=== PATIENT | female | born 1960 | race Caucasian/White ===

== ENCOUNTER 2022-11-18 14:50 | Emergency (ER) | payer BC, SELFPAY ==
[2022-11-18 15:00] VITALS: BP 137/81; PULSE 81; RESP 14; TEMP 36.7; O2SAT 99
--- NOTE | 2022-11-18 15:37 | ED.GENADULT ---
HPI - General Adult General Chief complaint: Skin/Abscess/Foreign Body Stated complaint: Poison gonzalo Source: patient Mode of arrival: ambulatory Limitations: no limitations History of Present Illness HPI narrative: Patient presents for evaluation of pruritic rash to bilateral upper extremities with symptom onset 7 days ago. Two days prior she was working in the yard and believes she was exposed to poison gonzalo. She has never had poison gonzalo dermatitis in the past. She feels that her symptoms are now involving the left side of her face. No difficulty breathing or swallowing. She applied hydrocortison cream and calamine lotion. Related Data Home Medications Medication Instructions Recorded Confirmed alprazolam 0.25 mg tablet 0.25 mg PO TID PRN Anxiety 11/18/22 11/18/22 bupropion HCl 300 mg 24 hr tablet, 300 mg PO DAILY 11/18/22 11/18/22 extended release losartan 50 mg tablet 50 mg PO DAILY 11/18/22 11/18/22 trazodone 100 mg tablet 100 mg PO QHS 11/18/22 11/18/22 triamterene 37.5 1 tablet PO DAILY 11/18/22 11/18/22 mg-hydrochlorothiazide 25 mg tablet valacyclovir 1 gram tablet 2,000 mg PO Q12H 11/18/22 11/18/22 Allergies Allergy/AdvReac Type Severity Reaction Status Date / Time No Known Allergies Allergy Mild Verified 11/18/22 15:04 Review of Systems Review of Systems: CONSTITUTIONAL: Denies fever, chills, or sweats. EYES: Denies visual changes, redness, or discharge. ENT: Denies rhinorrhea, congestion, sore throat, or otalgia. CARDIOVASCULAR: Denies chest pain, palpitations, or edema. RESPIRATORY: Denies cough or dyspnea. GASTROINTESTINAL: Denies abdominal pain, nausea, vomiting, or diarrhea. GENITOURINARY: Denies dysuria or hematuria. SKIN: Reports pruritic rash to BUE and pruritis to left side of her face. MUSCULOSKELETAL: Denies back pain, joint pain, or myalgia. NEUROLOGIC: Denies headache, numbness, dizziness, or weakness. PSYCHIATRIC: Denies anxiety or depression. [facility] Past Medical History Medical History Hypertension Surgical History Surgical History No pertinent past surgical history Family History Family History Mother Family history non-contributory Social History Social History Substance use: never Gender identity (if verbalized by the patient): Female Spiritual care concerns: No Exam Narrative: GENERAL: Well-appearing, well-nourished, and in no acute distress. HEAD: Normocephalic, atraumatic. EYES: PERRLA and EOMI. ENT: Nares clear, no rhinorrhea or epistaxis. Mucous membranes moist. Oropharynx without tonsillar hypertrophy exudate or other lesions. Bilateral TMs pearly [place] nonbulging NECK: Supple. No adenopathy or masses. No carotid bruits or JVD CHEST: Clear to auscultation. No respiratory distress. No wheezes rales or rhonchi HEART: Regular rate and rhythm. No murmur heard. Normal peripheral pulses. ABDOMEN: Soft, nontender, nondistended, normal active bowel sounds. EXTREMITIES: Normal range of motion. No edema. SKIN: There are patchy clusters of vesicles noted to the bilateral upper extremities, some of which have dried sanguinous drainage. There is surrounding erythema present. NEURO: No focal deficits. Alert and oriented x3. PSYCH: Normal mood and affect. Course Course Emergency Course: This is a 62-year-old female who presented for evaluation of pruritic rash to bilateral upper extremities consistent with poison gonzalo dermatitis. Advise she continues calamine lotion. Will start prednisone taper as this is usually more effective than burst therapy when treating poison gonzalo dermatitis. She should not stop prednisone abruptly. She should follow up with primary care provider and go to the ER for worsening symptoms. Pt in agree
== END 2022-11-18 15:40 | disposition home or self-care (01) ==
PROVIDERS: Emergency Provider Nurse Practitioner
DX: L23.7 Allergic contact dermatitis due to plants, except food (principal); I10 Essential (primary) hypertension
CPT/HCPCS: 99213; G0463

== ENCOUNTER 2023-01-31 08:39 | Emergency (ER) | payer BC, SELFPAY ==
[2023-01-31 08:46] VITALS: BP 141/80; PULSE 74; RESP 20; TEMP 36.7; O2SAT 100
--- NOTE | 2023-01-31 09:05 | ED.GENADULT ---
HPI - General Adult General Chief complaint: Urogenital-Female Stated complaint: uti Source: patient Mode of arrival: ambulatory Limitations: no limitations History of Present Illness HPI narrative: Patient presents for evaluation of urinary symptoms for last 2 days. Symptoms include dysuria, urinary frequency and hesitancy. She denies any fever, chills, nausea, vomiting, abdominal pain, hematuria, vaginal bleeding and discharge. She took a home test that indicated she has a UTI. She has had urinary tract infections in the remote past. Related Data Home Medications Medication Instructions Recorded Confirmed alprazolam 0.25 mg tablet 0.25 mg PO TID PRN Anxiety 11/18/22 01/31/23 bupropion HCl 300 mg 24 hr tablet, 300 mg PO DAILY 11/18/22 01/31/23 extended release losartan 50 mg tablet 50 mg PO DAILY 11/18/22 01/31/23 triamterene 37.5 1 tablet PO DAILY 11/18/22 01/31/23 mg-hydrochlorothiazide 25 mg tablet Allergies Allergy/AdvReac Type Severity Reaction Status Date / Time No Known Allergies Allergy Mild Verified 01/31/23 08:58 Review of Systems Review of Systems: CONSTITUTIONAL: Denies fever, chills, or sweats. EYES: Denies visual changes, redness, or discharge. ENT: Denies rhinorrhea, congestion, sore throat, or otalgia. CARDIOVASCULAR: Denies chest pain, palpitations, or edema. RESPIRATORY: Denies cough or dyspnea. GASTROINTESTINAL: Denies abdominal pain, nausea, vomiting, or diarrhea. GENITOURINARY: Reports urinary frequency, hesitancy and dysuria. Denies hematuria, vaginal bleeding or discharge SKIN: Denies rash or itching. MUSCULOSKELETAL: Denies back pain, joint pain, or myalgia. NEUROLOGIC: Denies headache, numbness, dizziness, or weakness. PSYCHIATRIC: Denies anxiety or depression. [facility] Past Medical History Medical History Hypertension Surgical History Surgical History No pertinent past surgical history Family History Family History Mother Family history non-contributory Social History Social History Smoking status: Never smoker Substance use: never Living arrangements: alone Gender identity (if verbalized by the patient): Female Spiritual care concerns: No Exam Narrative: GENERAL: Well-appearing, well-nourished, and in no acute distress. HEAD: Normocephalic, atraumatic. EYES: PERRLA and EOMI. ENT: Nares clear, no rhinorrhea or epistaxis. Mucous membranes moist. Oropharynx without tonsillar hypertrophy exudate or other lesions. Bilateral TMs pearly [place] nonbulging NECK: Supple. No adenopathy or masses. No carotid bruits or JVD CHEST: Clear to auscultation. No respiratory distress. No wheezes rales or rhonchi HEART: Regular rate and rhythm. No murmur heard. Normal peripheral pulses. ABDOMEN: Soft, nontender, nondistended, normal active bowel sounds. EXTREMITIES: Normal range of motion. No edema. SKIN: Warm, dry, no rash. NEURO: No focal deficits. Alert and oriented x3. PSYCH: Normal mood and affect. Course Course Emergency Course: This is a 62-year-old female who presented for evaluation of urinary symptoms. She has trace leukocytes on exam today. Will send urine for culture. DC with Bactrim and pyridium. Increase hydration. Follow up with primary provider. Go to the ER for worsening symptoms. Patient in agreement plan of care. Level of Care: Express Care Visit Vital Signs Vital signs: Vital Signs Temperature 36.7 C 01/31/23 08:46 Pulse Rate 74 01/31/23 08:46 Respiratory Rate 20 01/31/23 08:46 Blood Pressure 141/80 H 01/31/23 08:46 Pulse Oximetry 100 01/31/23 08:46 Oxygen Delivery Room Air 01/31/23 08:46 Temperature 36.7 C 01/31/23 08:46 Pulse Rate 74 01/31/23 08:46 Respirato
== END 2023-01-31 10:02 | disposition home or self-care (01) ==
PROVIDERS: Emergency Provider Nurse Practitioner; PCP Family Medicine
DX: N30.00 Acute cystitis without hematuria (principal); I10 Essential (primary) hypertension
CPT/HCPCS: 81003; 87077; 87086; 87186; 99213; G0463

== ENCOUNTER 2023-02-15 12:44 | Emergency (ER) | payer BC, SELFPAY ==
[2023-02-15 12:56] VITALS: BP 135/78; PULSE 80; RESP 16; TEMP 36.5; O2SAT 100
--- NOTE | 2023-02-15 13:40 | ED.GENADULT ---
HPI - General Adult General Chief complaint: Urogenital-Female Stated complaint: Poss UTI Source: patient Mode of arrival: ambulatory Limitations: no limitations History of Present Illness HPI narrative: Patient presents for evaluation of dysuria since yesterday. I saw her here in the middle of this month at which time I diagnosed her with a urinary tract infection. She was prescribed Bactrim and pyridium. Culture grew out e coli, susceptible to multiple abx including Bactrim. She took the medication as directed and states her symptoms resolved. Yesterday she was driving back from floor to a when she noted some dysuria when she stopped for a bathroom break. She had no other urinary symptoms. Denies any vaginal discharge or bleeding. No fever, chills, nausea, vomiting, abdominal pain. She indicates while in fluids she developed a ?fever blisters? to the left. She has not noted any genital lesions. She did have increased sexual activity while there. She states her dysuria is improved today. She started taking valtrex yesterday and plans to take that and remaining dose of pyridium later today. She did have increased intake of caffeine and ETOH while in [place]. Related Data Home Medications Medication Instructions Recorded Confirmed alprazolam 0.25 mg tablet 0.25 mg PO TID PRN Anxiety 11/18/22 01/31/23 bupropion HCl 300 mg 24 hr tablet, 300 mg PO DAILY 11/18/22 01/31/23 extended release losartan 50 mg tablet 50 mg PO DAILY 11/18/22 01/31/23 triamterene 37.5 1 tablet PO DAILY 11/18/22 01/31/23 mg-hydrochlorothiazide 25 mg tablet Allergies Allergy/AdvReac Type Severity Reaction Status Date / Time No Known Allergies Allergy Mild Verified 01/31/23 08:58 Review of Systems Review of Systems: CONSTITUTIONAL: Denies fever, chills, or sweats. EYES: Denies visual changes, redness, or discharge. ENT: Denies rhinorrhea, congestion, sore throat, or otalgia. CARDIOVASCULAR: Denies chest pain, palpitations, or edema. RESPIRATORY: Denies cough or dyspnea. GASTROINTESTINAL: Denies abdominal pain, nausea, vomiting, or diarrhea. GENITOURINARY: Reports dysuria, improving. Denies any urinary hesitancy, frequency, urgency, hematuria. Denies any vaginal bleeding or discharge. SKIN: Denies rash or itching. MUSCULOSKELETAL: Denies back pain, joint pain, or myalgia. NEUROLOGIC: Denies headache, numbness, dizziness, or weakness. PSYCHIATRIC: Denies anxiety or depression. [facility] Past Medical History Medical History Hypertension Surgical History Surgical History No pertinent past surgical history Family History Family History Mother Family history non-contributory Social History Social History Smoking status: Never smoker Substance use: never Living arrangements: alone Gender identity (if verbalized by the patient): Female Spiritual care concerns: No Course Course Emergency Course: This is a 62-year-old female who presented for evaluation of urinary symptoms. No evidence of UTI in her urine today. Dysuria could be related to increased caffeine and alcohol intake. Advised increased water intake and elimination of caffeine and alcohol for now. She did verbalize that her symptoms are getting better today. She has not seen any vaginal lesions to suggest HSV and denies any discharge. Advised she follow up with her PCP and go to the ER for worsening symptoms. Pt in agreement with plan of care. Level of Care: Express Care Visit Vital Signs Vital signs: Vital Signs Temperature 36.5 C 02/15/23 12:56 Pulse Rate 80 02/15/23 12:56 Respiratory Rate 16 02/15/23 12:56 Blood Pressure 135/78 02/15/23 12:56 Pulse Oximetry 100 02/15/23 12:56 Temperature 36.5
== END 2023-02-15 13:42 | disposition home or self-care (01) ==
PROVIDERS: Emergency Provider Nurse Practitioner
DX: R30.0 Dysuria (principal); I10 Essential (primary) hypertension
CPT/HCPCS: 81003; 99212; G0463

== ENCOUNTER 2025-02-23 16:59 | Emergency (ER) | payer OTHER, SELFPAY ==
--- OUTSIDE RECORDS SUMMARY | 2025-02-23 17:02 | XMS_ITS | Patient Health Record ---
Author Organization [facility] [employer] Address [address] [facility] [address] [place] [address] Care Team Providers Care Cra Name Role Phone Priyanka Mckoy Unavailable [phone] Jose Alejandro Trinidad Unavailable [phone] Allergies No Known Allergies Results Component Value Reference Range Notes UDT Reviewed date:02/03/2025 07:45:29 AM Interpretation: Performing Lab: Notes/Report: THC n 0 - 50 ng/ml Cocaine n 0 - 300 ng/ml Amphetamine n 0 - 1000 ng/ml Buprenorphine (BUP) n 0 - 10 ng/ml Secobarbital (Bar) n 0 - 300 ng/ml Oxazepam (BZO) n 0 - 300 ng/ml 8-mbctjmwmih-5,3-cpxhepyk-5,3-diphenylpyrrolidine (STAN P) n 0 - 300 ng/ml Methamphetamine (MET) n 0 - 1000 ng/ml Methylenedioxymethamphetamine (MDMA) n 0 - 500 ng/ml Morphine (MOP 300/[id number]) n 0 - 300 ng/ml Methadone (MTD) n 0 - 300 ng/ml Phencyclidine (PCP) n 0 - 25 ng/ml Nortriptyline (TCA) n 0 - 1000 ng/ml Oxycodone n 0 - 300 ng/ml x n 0 - 300 ng/ml UDT Reviewed date:05/16/2024 05:39:14 PM Interpretation: Performing Lab: Notes/Report: THC NEG 0 - 50 ng/ml Cocaine NEG 0 - 300 ng/ml Amphetamine NEG 0 - 1000 ng/ml Buprenorphine (BUP) NEG 0 - 10 ng/ml Secobarbital (Bar) NEG 0 - 300 ng/ml Oxazepam (BZO) NEG 0 - 300 ng/ml 4-thqnsdgtkm-7,4-hlposkgy-5,3-diphenylpyrrolidine (STAN P) NEG 0 - 300 ng/ml Methamphetamine (MET) NEG 0 - 1000 ng/ml Methylenedioxymethamphetamine (MDMA) NEG 0 - 500 ng/ml Morphine (MOP 300/[id number]) NEG 0 - 300 ng/ml Methadone (MTD) NEG 0 - 300 ng/ml Phencyclidine (PCP) NEG 0 - 25 ng/ml Nortriptyline (TCA) NEG 0 - 1000 ng/ml Oxycodone NEG 0 - 300 ng/ml x NEG 0 - 300 ng/ml Reason For Referral No Information Medications Medication SIG (Take, Route, Frequency, Duration) Notes Start Date End Date Status Progesterone 100 MG Capsule 1 capsule at bedtime Orally Once a day Active Triamterene-HCTZ 37.5-25 MG Tablet Oral Active Losartan Potassium 50 MG Tablet Oral Active ALPRAZolam 0.25 MG Tablet 1 tablet Oral once a day; Duration: 30 days As needed Active buPROPion HCl ER (XL) 300 MG Tablet Extended Release 24 Hour 1 tablet every morning Oral Once a day Active Lisdexamfetamine Dimesylate 30 MG Capsule 1 capsule in the morning Orally Once a day; Duration: 30 days 02/02/2025 Active Social History Tobacco Use: Social History Observation Description Date Details (start date - stop date) Never Smoker NA - NA Sex Assigned At : Social History Observation Description Sex Assigned At Female Social History Miscellaneous: Social Info Question Answer Notes Advance Care Planning Are you your own decision-maker Yes Do you have Power of Fitness Leader for Health or [facility]? No Safety issues: Are there any firearms in the house? Ye s Social History Social Info Question Answer Notes Household: Marital Status: Number of Adults in household: 1 Number of Children in Household: 0 Level of Education: Finished High School Drug/Alcohol: Social Info Question Answer Notes AUDIT-C (Standard) Did you have a drink containing alcohol in the past year? Yes How often did you have a drink containing alcohol in the past year? 2 to 3 times a week (3 points) Tobacco Use: Social Info Question Answer Notes Tobacco Control (Standard) Tobacco use: Nonsmoker Additional Details Category Social Info Options Details Drug/Alcohol: Do you smoke marijuana? Den ies Do you drink alcohol? Yes Problems Problem Type SNOMED Code ICD Code Onset Dates Problem Status W/U Status Risk Notes Problem Generalized anxiety disorder (15692794) KELLEN (generalized anxiety disorder) (F41.1) Active confirmed Problem Attention deficit hyperactivity disorder (775649701) ADHD (attention deficit hyperactivity disorder), combined type (F90.2) Active confirmed Problem Mild recurrent major depression (68808344) MDD (major depressive disorder), recurrent episode, mild (F33.0) Active confirmed Problem Recurrent major depression (30836295) MDD (recurrent major depressive disorder) in remission (F33.40) Active confirmed Vital Signs Heart Rate 71 /min 02/02/2025 Blood pressure diastolic 91 mm Hg 02/02/2025 Weight-kg 68.58 kg 02/02/2025 Blood pressure systolic 171 mm Hg 02/02/2025 Weight 151.2 lbs 02/02/2025 Procedures Procedure Date Ordered Date Performed Result Body Sit e ADHD Testing 04/27/2024 N/A ADHD Testing 05/16/2024 N/A Encounters Encounter Location Date Provider Diagnosis [facility] [place] [address] [address] 04/27/2024 Priyanka Kurilla KELLEN (generalized anxiety disorder) F41.1 ; MDD (recurrent major depressive disorder) in remission F33.40 and ADHD (attention deficit hyperactivity disorder), combined type F90.2 [facility] [place] [address] [address] 05/16/2024 Jose Alejandro Trinidad ADHD (attention defi cit hyperactivity disorder), combined type F90.2 [facility] [place] [address] [address] 05/31/2024 Priyanka Kurilla KELLEN (generalized anxiety disorder) F41.1 ; MDD (recurrent major depressive disorder) in remission F33.40 and ADHD (attention deficit hyperactivity disorder), combined type F90.2 [facility] [address] [address] 10/07/2024 Priyanka Kurilla KELLEN (generalized anxiety disorder) F41.1 ; MDD (recurrent major depressive disorder) in remission F33.40 ; ADHD (attention deficit hyperactivity disorder), combined type F90.2 ; Benign essential HTN I10 ; Encounter for screening for cardiovascular disorders Z13.6 ; Dietary counseling and surveillance Z71.3 and Encounter for screening for depression Z13.31 [facility] [address] [place] [address] 02/02/2025 Priyankasparkle Mckoy MDD (recurrent major depressive disorder) in remission F33.40 ; ADHD (attention deficit hyperactivity disorder), combined type F90.2 ; Encounter for screening for cardiovascular disorders Z13.6 ; KELLEN (generalized anxiety disorder) F41.1 and Dietary counseling and surveillance Z71.3 [place] [address] [place] [address] 07/01/2024 Priyanka Kurilla ADHD (attention defi cit hyperactivity disorder), combined type F90.2 [facility] [address] [place] [address] 07/07/2024 Priyanka Kurilla [place] [address] [place] [address] 08/08/2024 Priyanka Kurilla ADHD (attention defi cit hyperactivity disorder), combined type F90.2 [place] [address] [place] [address] 09/30/2024 Priyanka Kurilla ADHD (attention defi cit hyperactivity disorder), combined type F90.2 and KELLEN (generalized anxiety disorder) F41.1 [place] [address] [place] [address] 11/29/2024 Priyanka Kurilla ADHD (attention defi cit hyperactivity disorder), combined type F90.2 and KELLEN (generalized anxiety disorder) F41.1 [place] [address] [place] [address] 01/09/2025 Priyanka Kurilla ADHD (attention defi cit hyperactivity disorder), combined type F90.2 and KELLEN (generalized anxiety disorder) F41.1 [facility] [address] [place] [address] 01/11/2025 Priyanka Kurilla ADHD (attention defi cit hyperactivity disorder), combined type F90.2 [place] [address] [place] [address] 01/12/2025 Priyanka Kurilla [place] [address] [place] [address] 01/13/2025 Priyanka Leelee Assessments Encounter Date Diagnosis (ICD Code) Assessment Notes Treatment Notes Treatment Clinical Notes Section Notes 07/01/2024 ADHD (attention deficit hyperactivity disorder), combined type (ICD-10 - F90.2) 08/08/2024 ADHD (attention deficit hyperactivity disorder), combined type (ICD-10 - F90.2) 04/27/2024 KELLEN (generalized anxiety disorder) (ICD-10 - F41.1) [place] report checked and consistent with prescription history, no controlled substance prescriptions from other providers. LAST FILL 07/202304/27/2024 MDD (recurrent major depressive disorder) in remission (ICD-10 - F33.40) 05/16/2024 ADHD (attention deficit hyperactivity disorder), combined type (ICD-10 - F90.2) 05/31/2024 KELELN (generalized anxiety disorder) (ICD-10 - F41.1) [place] report checked and consistent with prescription history, no controlled substance prescriptions from other providers. LAST FILL 07/202309/30/2024 ADHD (attention deficit hyperactivity disorder), combined type (ICD-10 - F90.2) 10/07/2024 KELLEN (generalized anxiety disorder) (ICD-10 - F41.1) [place] report checked and consistent with prescription history, no controlled substance prescriptions from other providers. LAST FILL 07/202311/29/2024 ADHD (attention deficit hyperactivity disorder), combined type (ICD-10 - F90.2) 01/09/2025 ADHD (attention deficit hyperactivity disorder), combined type (ICD-10 - F90.2) 01/11/2025 ADHD (attention deficit hyperactivity disorder), combined type (ICD-10 - F90.2) 02/02/2025 MDD (recurrent major depressive disorder) in remission (ICD-10 - F33.40) Common side effects of Wellbutrin include insomnia, increased anxiety, nausea, dizziness, decreased appetite, restlessness, irritability and anger, increased sweating or hot flashes, tremors, joint pain. Wellbutrin is not recommended in individuals with a history of seizures. If side effects persist, please contact the office. 02/02/2025 ADHD (attention deficit hyperactivity disorder), combined type (ICD-10 - F90.2) ADHD Stimulant Education -Discussed with patient risk of misuse, abuse, and addiction before prescribing stimulant medicines. -Counseled not to share their prescribed stimulant with anyone else. -Educated patient will monitor during treatment: regularly assess and monitor them for signs and symptoms of nonmedical use, addiction, and potential diversion, which may be evidenced by more frequent renewal requests and medication metabolites absent from urine drug screens. -Random UDS (at least every three months or more frequently deemed by provider). -Per office policy, only prescribed to local pharmacy in [place], no early refills on control substance. 01/09/2025 KELLEN (generalized anxiety disorder) (ICD-10 - F41.1) 05/31/2024 MDD (recurrent major depressive disorder) in remission (ICD-10 - F33.40) Common side effects of Wellbutrin include insomnia, increased anxiety, nausea, dizziness, decreased appetite, restlessness, irritability and anger, increased sweating or hot flashes, tremors, joint pain. Wellbutrin is not recommended in individuals with a history of seizures. If side effects persist, please contact the office. 11/29/2024 KELLEN (generalized anxiety disorder) (ICD-10 - F41.1) 10/07/2024 MDD (recurrent major depressive disorder) in remission (ICD-10 - F33.40) Common side effects of Wellbutrin include insomnia, increased anxiety, nausea, dizziness, decreased appetite, restlessness, irritability and anger, increased sweating or hot flashes, tremors, joint pain. Wellbutrin is not recommended in individuals with a history of seizures. If side effects persist, please contact the office. 04/27/2024 ADHD (attention deficit hyperactivity disorder), combined type (ICD-10 - F90.2) 09/30/2024 KELLEN (generalized anxiety disorder) (ICD-10 - F41.1) 05/31/2024 ADHD (attention deficit hyperactivity disorder), combined type (ICD-10 - F90.2) BOXED WARNINGCaution with history of drug dependence or alcoholism. Marked tolerance and psychological dependence may result from chronic abusive use. Adolfo psychotic episodes may occur, especially with parenteral abuse. Careful supervision required for withdrawal from abusive use to avoid severe depression. Withdrawal following chronic use may unmask symptoms of underlying disorder that may require follow-up 10/07/2024 ADHD (attention deficit hyperactivity disorder), combined type (ICD-10 - F90.2) ADHD Stimulant Education -Discussed with patient risk of misuse, abuse, and addiction before prescribing stimulant medicines. -Counseled not to share their prescribed stimulant with anyone else. -Educated patient will monitor during treatment: regularly assess and monitor them for signs and symptoms of nonmedical use, addiction, and potential diversion, which may be evidenced by more frequent renewal requests and medication metabolites absent from urine drug screens. -Random UDS (at least every three months or more frequently deemed by provider). -Per office policy, only prescribed to local pharmacy in [place], no early refills on control substance. 02/02/2025 Encounter for screening for cardiovascular disorders (ICD-10 - Z13.6) 02/02/2025 KELLEN (generalized anxiety disorder) (ICD-10 - F41.1) [place] report checked and consistent with prescription history, no controlled substance prescriptions from other providers. LAST FILL 01/09/2025 02/02/2025 Dietary counseling and surveillance (ICD-10 - Z71.3) 10/07/2024 Benign essential HTN (ICD-10 - I10) 10/07/2024 Encounter for screening for cardiovascular disorders (ICD-10 - Z13.6) 10/07/2024 Dietary counseling and surveillance (ICD-10 - Z71.3) 10/07/2024 Encounter for screening for depression (ICD-10 - Z13.31) 04/27/2024 Other Stable, continue wellbutrin 300mg daily for mood, anxiety. Continue alprazolam 0.25 mg daily PRN. Last fill 07/2023 Patient educated on all medications including potential benefits, side effects, risks. Educated on proper dosing schedule and importance of compliance. Schedule for ADHD evaluation to further assess symptoms. 05/31/2024 Other ADHD evaluation reviewed, supportive of diagnosis. Discussed treatment options including stimulants versus non stimulants, risks/benefits of both. Start lisdexamfetamine 20mg daily for ADHD management. Patient educated on all medications including potential benefits, side effects, risks. Educated on proper dosing schedule and importance of compliance. [place] report checked and consistent with prescription history, no controlled substance prescriptions from other providers. -Assessment and treatment plan reviewed with patient. -Compliance with treatment plan importance discussed. -Discussed the risks/benefits of this medication -Discussed medication side effects. -Contact office if symptoms worsen. -Discussed that it can take up to 6-8 weeks to see full therapeutic effects of psychotropic medications. -Crisis prevention hotline 988. 10/07/2024 Other Increase Vyvanse to 30mg daily for ADHD management Patient educated on all medications including potential benefits, side effects, risks. Educated on proper dosing schedule and importance of compliance. [place] report checked and consistent with prescription history, no controlled substance prescriptions from other providers. -Assessment and treatment plan reviewed with patient. -Compliance with treatment plan importance discussed. -Discussed the risks/benefits of this medication -Discussed medication side effects. -Contact office if symptoms worsen. -Discussed that it can take up to 6-8 weeks to see full therapeutic effects of psychotropic medications. -Crisis prevention hotline 988. 02/02/2025 Other Stable on current medication regimen, continue at current doses. -Refills sent in today -No concerns today Patient educated on all medications including potential benefits, side effects, risks. Educated on proper dosing schedule and importance of compliance. [place] report checked and consistent with prescription history, no controlled substance prescriptions from other providers. -Assessment and treatment plan reviewed with patient. -Compliance with treatment plan importance discussed. -Discussed the risks/benefits of this medication -Discussed medication side effects. -Contact office if symptoms worsen. -Discussed that it can take up to 6-8 weeks to see full therapeutic effects of psychotropic medications. -Crisis prevention hotline 988. Plan Of Treatment Pending Test Test Name Order Date UDT 04/27/2024 ADHD Testing 04/27/2024 ADHD Testing 05/16/2024 Next Appt Details Provider Name:Priyanka Gold Cruz kang, 05/11/2025 04:45:00 PM, [address] [facility] [address], [facility] [address], [place], [address], Insurance Providers Payer Name Payer Address Payer Phone Subscriber Number Group Number Insured Name Patient Relationship to Insured Coverage Start Date Coverage End Date [employer] [employer] [address] [place] [address] [id number] ROSE BROCK Self - patient is the insured 4 [employer] [address] [place] [address] [id number] ROSE BROCK Self - patient is the insured 5 Medical (General) History Medical History History ICD Code abdominal aortic aneurysm: No atrial fibrillation: No chronic fatigue syndrome: No essential tremor: No hyperlipidemia: No hypertension: No Parkinson's disease: No restless leg syndrome: No stroke: No subdural hematoma: No type 1 diabetes mellitus: No type 2 diabetes mellitus: No vitamin B12 deficiency: No vitamin D deficiency: No Hospitalization History Reason Date(Month/Year) no history of [facility] admissions
--- OUTSIDE RECORDS SUMMARY | 2025-02-23 17:02 | XMS_ITS | Clinical Summary ---
Author Organization [facility] Address [address], [facility] [address] [place] [address] Phone Care Team Providers Care Patternmaker Helper Name Role Phone Eulalio Vaughn MD Primary Care Provider [phone] Social History Tobacco Use Types Packs/Day Years Used Date Smoking Tobacco: Never Assessed Comments Unknown Sex and Gender Information Value Date Recorded Sex Assigned at Not on file Legal Sex Female 11:09 PM CDT Gender Identity Not on file Sexual Orientation Not on file Last Filed Vital Signs Vital Sign Reading Time Taken Comments Blood Pressure - - Pulse - - Temperature - - Respiratory Rate - - Oxygen Saturation - - Inhaled Oxygen Concentration - - Weight 68 kg (150 lb) 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/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 Height - - Body Mass Index - - Plan of Treatment Health Maintenance Due Date Last Done Comments Hepatitis C Virus (HCV) Screening 1959 TdaP Immunization 1959 Pap Smear 1980 Cervical Cancer Screening (CCS) 1989 HPV/Cotest 1989 Cologuard 2004 Colonoscopy 2004 Colorectal Cancer Screening 2004 Immunochemical Fecal Occult Blood 2004 Pneumococcal Immunization (5 0+ years) (1 of 1 - PCV) 2009 Zoster Immunization (1 of 2) 2009 SARS-COV-2 Immunization (1 - 2023-25 season) 2024 Influenza Immunization (#1) 2025 Respiratory Syncytial Virus (RSV) Immunization (Adult) (1 - 1-dose 75+ series) 2034 Hepatitis B Immunization Aged Out No longer eligible based on patient's age to complete this topic Human Papillomavirus (HPV) Immunization Aged Out No longer eligible b ased on patient's age to complete this topic Meningococcal Immunization (ACWY) Aged Out No longer eligible based on patient's age to complete this topic Rotavirus Immunization Aged Out No lo nger eligible based on patient's age to complete this topic Insurance on file Care Teams Patternmaker Helper Relationship Specialty Start Date End Date Eulalio Vaughn MD [address] [facility] [address] [address] PCP - General Internal Medicine 06/07/15
--- OUTSIDE RECORDS SUMMARY | 2025-02-23 17:02 | XMS_ITS | Clinical Summary ---
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 Name Role Phone Johanna Lorenzana MD Primary Care Provide r Allergies No known active allergies Medications ALPRAZolam (XANAX) 0.25 mg tabletIndicatio ns:Anxiety state Take 1 tablet (0.25 mg total) by mouth nightly as needed for anxiety TAKE 1 TABLET BY MOUTH THREE TIMES A DAY NEEDED 30 tablet 04/21/2024 Active lisdexamfetamin e (VYVANSE) 20 mg capsule TAKE 1 CAPSULE BY MOUTH DAILY IN THE MORNING 07/02/2024 Active progesterone (PROMETRIUM) 100 mg capsule Take 1 capsule (100 mg total) by mouth 06/30/2024 Active triamterene-hyd roCHLOROthiazid e 37.5-25 mg per tablet/capsule Take 1 tablet/capsu le by mouth daily 90 tablet 1 09/26/2024 Active buPROPion XL (WELLBUTRIN XL) 300 mg 24 hr tablet Take 1 tablet (300 mg total) by mouth every morning 90 tablet 1 09/26/2024 Active cyclobenzaprine (FLEXERIL) 5 mg tablet Take 1 tablet (5 mg total) by mouth daily as needed for muscle spasms for up to 14 days 14 tablet 10/21/2024 Active Active Problems Problem Noted Date Diagnosed Date BMI 27.0-27.9,adult 09/26/2024 Attention deficit hyperactivity disorder (ADHD) 09/26/2024 Assessment & Plan (09/26/2024 1:08 PM CDT): Currently managed by psych Currently on vyvanse Left hip pain 04/28/2023 Assessment & Plan (04/28/2023 4:48 PM CHAIN MORTISER OPERATOR): Off and on Worsening, possible arthritis Will get xray of the left hip, depending on results will consider physical therapy referral F/u at annual Insomnia 07/23/2022 Assessment & Plan (07/23/2022 4:03 PM CHAIN MORTISER OPERATOR): She has done trazodone in the past and it didn't help much. She is willing to try the 100mg of trazodone Encounter for wellness examination 07/22/2022 Assessment & Plan (09/26/2024 1:33 PM CDT): Labs pending Recommend staying up to date on vaccines Colonoscopy up to date, due in 2026 Pap smear follows with ob Mammo up to date, order for diagnostic mammo and US of left breast Bone density scan ordered F/u in 1 year for annual Assessment & Plan (07/26/2023 9:19 PM CHAIN MORTISER OPERATOR): Ordered CBC, cmp, lipid, hgb a1c, Flu declines Colonoscopy up to date Pap smear follows with ob Mammo up to date F/u in 1 year for annual Assessment & Plan (07/23/2022 5:22 PM CHAIN MORTISER OPERATOR): Ordered CBC, cmp, lipid, hgb a1c, HIV, TSH w/ reflex to t4 Flu declines Colonoscopy up to date Pap smear follows with ob Mammo up to date F/u in 1 year for annual Hypertriglyceridemia 12/12/2021 Assessment & Plan (09/22/2024 9:11 PM CDT): Stable / clinically quiescent. Will continue to monitor. Assessment & Plan (07/26/2023 9:17 PM CHAIN MORTISER OPERATOR): Stable / clinically quiescent. Will continue to monitor. 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 07/16/2021 History of migraine headaches 07/16/2021 Assessment & Plan (09/22/2024 9:12 PM CDT): Stable Continue sumatriptan as needed Assessment & Plan (07/26/2023 9:18 PM CHAIN MORTISER OPERATOR): Stable Continue sumatriptan as needed Assessment & Plan (07/23/2022 4:06 PM CHAIN MORTISER OPERATOR): Stable Continue sumatriptan as needed Traumatic deformity 03/13/2021 Family history of colon cancer in mother 021 Essential hypertension 10/15/2017 Assessment & Plan (09/26/2024 1:02 PM CDT): Bp in the office today BP Readings from Last 1 Encounters: 09/26/24 120/72 Goal <130/80 Continue current regimen triamterene hctz 37.5-25mg Recommend DASH diet, heart-healthy lifestyle, exercise. Discussed the risks of hypertension. F/u in 6 months Assessment & Plan (07/08/2024 2:03 PM CHAIN MORTISER OPERATOR): Recommend DASH diet, heart-healthy lifestyle, exercise. Discussed the risks of hypertension. Assessment & Plan (01/26/2024 7:14 AM CDT): Bp in the office today BP Readings from Last 1 Encounters: 07/27/23 120/70 Goal <130/80 Continue current regimen of losartan 50mg daily and triamterene hctz 37.5-25mg Recommend DASH diet, heart-healthy lifestyle, exercise. Discussed the risks of hypertension. F/u in 6 months Assessment & Plan (07/27/2023 3:33 PM CHAIN MORTISER OPERATOR): Bp in the office today BP Readings from Last 1 Encounters: 07/27/23 120/70 Goal <130/80 Continue current regimen of losartan 50mg daily and triamterene hctz 37.5-25mg Recommend DASH diet, heart-healthy lifestyle, exercise. Discussed the risks of hypertension. F/u in 6 months Assessment & Plan (04/28/2023 4:36 PM CHAIN MORTISER OPERATOR): Bp in the office today BP Readings from Last 1 Encounters: 04/28/23 126/80 Goal <130/80 Continue current regimen of losartan 50mg daily and triamterene hctz 37.5-25mg Recommend DASH diet, heart-healthy lifestyle, exercise. Discussed the risks of hypertension. F/u in 3 months for annual Assessment & Plan (01/22/2023 10:35 AM CDT): Bp in the office today BP Readings from Last 1 Encounters: 01/21/23 130/78 Goal <130/80 Continue current regimen of losartan 50mg daily and triamterene hctz 37.5-25mg Will monitor off the amlodipine Recommend DASH diet, heart-healthy lifestyle, exercise. Discussed the risks of hypertension. F/u in 3 months Assessment & Plan (07/23/2022 3:56 PM CHAIN MORTISER OPERATOR): Bp in the office today BP Readings from Last 1 Encounters: 07/23/22 148/80 near goal Continue current regimen of amlodipine 5mg daily losartan 50mg daily and triamterene hctz 37.5-25mg Recommend DASH diet, heart-healthy lifestyle, exercise. Discussed the risks of hypertension. F/u in 6 months Assessment & Plan (02/11/2022 6:16 PM CDT): Bp in the office today BP Readings from Last 1 Encounters: 02/11/22 150/90 repeat 140/80 Continue current regimen Recommend DASH diet, heart-healthy lifestyle, exercise. Discussed the risks of hypertension. Assessment & Plan (12/12/2021 4:46 PM CDT): Bp in the office today BP Readings from Last 1 Encounters: 12/12/21 134/80 near goal Continue current regimen of amlodipine 5mg daily losartan 50mg daily and triamterene hctz 37.5-25mg Recommend DASH diet, heart-healthy lifestyle, exercise. Discussed the risks of hypertension. F/u in January Assessment & Plan (08/27/2021 7:33 PM CHAIN MORTISER OPERATOR): Recommend DASH diet, heart-healthy lifestyle, exercise. Discussed the risks of hypertension. Anxiety state 11/05/2013 Overview (09/26/2016): ANXIETY STATE NOS Assessment & Plan (09/22/2024 9:12 PM CDT): Stable / clinically quiescent. Will continue to monitor. Continue xanax and wellbutrin as prescribed Cont following with psychiatry Assessment & Plan (01/26/2024 5:04 PM CDT): Stable / clinically quiescent. Will continue to monitor. Continue xanax and wellbutrin as prescribed Recommend following back up with psychiatry to straighten out her medications Assessment & Plan (07/27/2023 5:16 PM CHAIN MORTISER OPERATOR): Continue xanax and wellbutrin as prescribed Needs refill on xanax Ilpmp reviewed Rx sent Assessment & Plan (07/23/2022 3:57 PM CHAIN MORTISER OPERATOR): Continue xanax and wellbutrin as prescribed Carpal tunnel syndrome 04/17/2011 Resolved Problems Problem Noted Date Diagnosed Date Resolved Date Pre-op exam 02/11/2022 01/26/2024 Assessment & Plan (02/20/2022 8:47 AM CDT): Going for breast reduction and lift She understands that no procedure is risk-free but accepts those as discussed during OV and wishes to proceed. She was instructed to contact us if any new symptoms or problems arise between now and surgery date. According to the RCRI, the patient's number of risk factors stratifies patient to class I, which carries a 3.9% risk of major cardiovascular complications EKG normal Labs unremarkable She is medically optimized for surgery FHx: migraine headaches 07/16/202106/23 Screen for colon cancer 03/25/202106/23 Overview (03/25/2021): Added automatically from request for surgery [id number] Acute non-recurrent maxillary sinusitis 06/16/2019 07/07/2019 Assessment & Plan (06/16/2019 12:41 PM CHAIN MORTISER OPERATOR): Due to length of illness we will treat with antibiotic, please complete the whole course of antibiotics-no leftovers. Prescription for antibiotics sent. Reviewed potential benefits and potential side effects of azithromycin . Aware to complete full course of antibiotic. To continue otc medications. Discussed nasal saline rinses/neti pots. Discussed need to increase fluid intake. May use 1 teaspoon honey every 4 hours as needed for cough, encourage use of hot tea or hot water with honey. May use vicks vapo rub on chest and bottom of feet before bed. Cool mist humidifier in bedroom. Lots of water, rest and handwashing, no sharing cups or utensils. If symptoms worsen including but not limited to shortness of breath, chest pain and/or increasing pain please notify office or present to Emergency Department. At risk for breast cancer 12/03/2016 Abnormal findings on diagnos tic imaging of breast 10/24/2014 07/16/2020 Irritable bowel syndrome 11/05/2013 Overview (09/25/2016): IRRITABLE BOWEL SYNDROME Anaclitic depression 07/05/2009 022 Encounters Date Type Department Care Team Description 11/28/2024 Results Follow-Up [facility] Primary Care at [address] [place] [id number] Johanna Alfonso MD Dexa Axial Skeleton Bone Density 1 Or 2 Site 11/25/2024 8:00 AM CDT - 11/25/2024 11:59 PM CDT Hospital Encounter [facility] [address] [place] [address] Age related osteoporosis, unspecified pathological fracture presence Discharge Disposition: Discharge to home or self care from Last 3 Months Immunizations Immunization Administration Dates Next Due Influenza, Unspecified 09/26/2024(Deferr ed: Patient Refused),07/08/2024(Deferred: Patient Refused),04/13/2024(Deferred: Patient Refused),04/10/2024(Deferred: Patient Refused),01/26/2024(Deferred: Patient Refused),04/28/2023(Deferred: Patient Refused),01/20/2023(Deferred: Patient Refused),02/11/2022(Deferred: Patient Refused),01/20/2022(Deferred: Patient Refused),12/12/2021(Deferred: Patient Refused),08/28/2021(Deferred: Patient Refused),06/22/2021(Deferred: Patient Refused),03/22/2021(Deferred: Patient Refused),01/23/2021(Deferred: Patient Refused),01/20/2021(Deferred: Patient Refused),01/20/2021(Deferred: Patient Refused),01/09/2021(Deferred: Patient Refused),10/08/2020(Deferred: Patient Refused),07/30/2020(Deferred: Patient Refused),07/16/2020(Deferred: Patient Refused),03/22/2020(Deferred: Patient Refused),07/07/2019(Deferred: Patient Refused),06/16/2019(Deferred: Patient ill today),04/06/2019(Deferred: Patient ill today),03/22/2018(Deferred: Patient Refused) Pfizer SARS-CoV-2 Monovalent Vaccination (12+ Yrs) PURPLE 10/15/2020,09/24/2020 Tdap 01/03/2019 ZOSTER Recombinant 04/06/2020,01/19/2020 Surgical History Surgery Date Site/Laterality Comments CARPAL TUNNEL RELEASE R CARPAL TUNNEL RELEASE CHOLECYSTECTOMY Cholecystectomy COLONOSCOPY 03/19/2015 COLONOSCOPY 07/12/2021 REDUCTION MAMMAPLASTY Medical History Medical History Date Comments Depression Depression Anxiety disorder Anxiety Hypertension Hypertension ADHD (attention deficit hyperactivity disorder) Family History Medical History Relation Name Comments Other Brother 2 Alive and well; Bone cancer Father Cancer -BONE; / Bone cancer - (Added by TW Conv) Bone cancer Mother Bone cancer - ( Added by TW Conv) Colon cancer Mother Cancer -colon; /Adenocarcinoma of colon - (Added by TW Conv) Diabetes Mother Diabetes mellit us; Other Sister 2 Alive and well; Breast cancer Sister 3 Adenocarcinoma of breast - (Added by TW Conv) Relation Name Status Comments Brother 1 Alive Brother 2 Father Mother Sister 1 Alive Sister 2 Sister 3 Social History Tobacco Use Types Packs/Day Years Used Date Smoking Tobacco: Never Passive Smoke Exposure: Never Smokeless Tobacco: Never Tobacco Cessation:Counseling Given: Not Answered Alcohol Use Standard Drinks/Week Comments Yes 0 (1 standard drink = 0.6 oz pur e alcohol) AUDIT-C Answer Date Recorded Q1: How often do you have a drink containing alc ohol? 2-4 times a month 01/26/2024 Q2: How many drinks containi ng alcohol do you have on a typical day when you are drinking? 1 or 2 01/26/2024 Q3: How often do you have si x or more drinks on one occasion? Never 01/26/2024 PHQ-2 Answer Date Recorded PHQ-2 Total Score (If total score is 3 or more points, staff should administer the PHQ-9) 0 09/26/2024 PHQ-9 Answer Date Recorded PHQ-9 Total Score 6 07/29/2024 Comments No Sex and Gender Information Value Date Recorded Sex Assigned at Not on file Legal Sex Female 11:53 PM CHAIN MORTISER OPERATOR Gender Identity Not on file Sexual Orientation Not on file Obstetrics History Last Filed Vital Signs Vital Sign Reading Time Taken Comments Blood Pressure 123/75 11/07/2024 2:52 PM CDT Pulse 74 11/07/2024 2:52 PM CDT Temperature 36.6 C (97.9 F) 11/07/2024 2:52 PM CDT Respiratory Rate 16 11/07/2024 2:52 PM CDT Oxygen Saturation 100% 11/07/2024 2:52 PM CDT Inhaled Oxygen Concentration - - Weight 70.2 kg (154 lb 12.8 oz) 11/07/2024 2:52 PM CDT Height 158.8 cm (5' 2.5) 11/07/2024 2:52 PM CDT Body Mass Index 27.86 11/07/2024 2:52 PM CDT Plan of Treatment Health Maintenance Due Date Last Done Comments Cervical Cancer Screening 1960 Covid-19 Vaccine (2024-2 6 season) 2025 05/22/2021, 10/15/2020, 09/24/2020 Influenza Vaccine (#1) 2025 Fall Risk Assessment 07/08/2025 07/08/2024, 01/26/2024, 07/27/2023, Additional history exists Depression Screening 09/26/2025 09/26/2024, 07/29/2024, 07/29/2024, Additional history exists Well Visit 65+ 09/26/2025 09/26/2024, 10/2023, 07/23/2022, Additional history exists Breast Cancer Screening-Mammogram 10/12/2025 10/12/2024, 11/03/2023, 10/22/2022, Additional history exists Colon Cancer Screening-Colonoscopy 07/12/2026 07/12/2021, 03/09/2015 Osteoporosis Screening-Bone Density Scan 11/25/2026 11/25/2024 DTaP/Tdap/Td Vaccine (2 - Td or Tdap) 01/03/2029 01/03/2019 Zoster Vaccine Completed 04/06/2020, 01/19/2020 Colon Cancer Screening-CT Colonography Discontinued 07/12/2021, 03/09/2015 Colon Cancer Screening-DNA Stool Discontinued 07/12/19, 03/09/2015 Colon Cancer Screening-FIT Discontinued 07/12/2021, Colon Cancer Screening-Sigmoidoscopy Discontinued 07/12/2021, 03/09/2015 Hepatitis C Screening Completed 09/09/2022, 015 Hepatitis B Screening Completed 11/07/2024 Pneumococcal vaccine 65+ Discontinued Procedures Procedure Name Priority Date/Time Associated Diagnosis Comments DEXA AXIAL SKELETON BONE DENSITY 1 OR MORE SITES Schedule Routine, Read Routine (OP Routine) 11/25/2024 8:34 AM CDT Age related osteoporosis, unspecified pathological fracture presence DIAGNOSTIC MAMMOGRAM BILATERAL W JUANJOSE Schedule Routine, Read Routine (OP Routine) 10/12/2024 8:08 AM CDT Abnormal mammogram of left breast HEPATITIS C ANTIBODY Routine 09/09/2022 7:29 AM CDT Healthcare maintenance Need for hepatitis C screening test COLONOSCOPY 07/12/2021 7:54 AM CHAIN MORTISER OPERATOR from Last 3 Months or Most Recently Relevant to Health Maintenance Results * Dexa Axial Skeleton Bone Density 1 Or 2 Site (11/25/2024 8:34 AM CDT) Anatomical Region Laterality Modality Body N/A Other 11/26/2024 9:16 AM CDT Narrative 11/26/2024 9:17 AM CDT EXAM DESCRIPTION: DEXA AXIAL SKELETON BONE DENSITY 1 OR MORE SITES REASON FOR STUDY: 64 y/o year old F with given history of: osteoporosis screening 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 CLINICAL INFORMATION: Current height: 62.5 inches Maximum height: 63 inches Weight: 154 pounds Risk factors: Postmenopausal, adult fracture, inflammatory bowel disease COMPARISON: None available FINDINGS: AP LUMBAR SPINE L1-L4: Total BMD is 0.939 g/cm2 T-score is -1.0 LEFT HIP: Total BMD is 0.925 g/cm2 T-score is -0.1 Femoral neck BMD is 0.693 g/cm2 T-score is -1.4 FRAX: 10 year risk for a major osteoporotic fracture is 14 %, 10 year risk for a hip fracture is 1.4 % Per National Osteoporosis Foundation guidelines, this patient does not meet the criteria for pharmacological treatment of patients with FRAX 10 year major osteoporotic fracture risk scores of = or greater than 20% or a 10 year probability of a hip fracture = or greater than 3%, to reduce fracture risk. Additional factors such as frequent falls are not represented in FRAX and warrant individual clinical judgment. IMPRESSION: Low Bone Mass. REFERENCE: Bone mineral density: T-Score: Normal (T-score above or = -1.0) Low bone mass (T-score between -1.0 and -2.5) replaces the previously used term osteopenia Osteoporosis (T-score = or below -2.5) Z-Score: Within the expected range for age (Z-score above -2.0) Below the expected range for age (Z-score is -2.0 or below) Please see below follow up recommendations. Medical evaluation for secondary causes of low bone mineral density may be appropriate. FRAX is a World Health Organization validated fracture risk assessment tool that calculates a person's 10 year probability of a major osteoporosis related fracture and hip fracture. According to the National Osteoporosis Foundation guidelines, postmenopausal women and men age 50 or older with low bone mass and a 10 year probability of a major osteoporosis related fracture = or greater than 20% or a 10 year probability of a hip fracture = or greater than 3% should be considered for pharmacological treatment for the prevention of osteoporosis. For further information, including treatment recommendations, please refer to the 2019 ISCD Official Positions (http://www.iscd.org) and the NOF's Clinician's Guide to Prevention and Treatment of Osteoporosis (http://www.nof.org/professionals/clinical-guidelines) THIS IS AN ELECTRONICALLY VERIFIED FINAL REPORT 11/26/2024 9:17 AM - Electronically signed by Peyman Chung M.D. 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 CLINICAL INFORMATION: Current height: 62.5 inches Maximum height: 63 inches Weight: 154 pounds Risk factors: Postmenopausal, adult fracture, inflammatory bowel disease COMPARISON: None available FINDINGS: AP LUMBAR SPINE L1-L4: Total BMD is 0.939 g/cm2 T-score is -1.0 LEFT HIP: Total BMD is 0.925 g/cm2 T-score is -0.1 Femoral neck BMD is 0.693 g/cm2 T-score is -1.4 FRAX: 10 year risk for a major osteoporotic fracture is 14 %, 10 year risk for ahip fracture is 1.4 % Per National Osteoporosis Foundation guidelines, this patient does notmeet the criteria for pharmacological treatment of patients with FRAX 10 yearmajor osteoporotic fracture risk scores of = or greater than 20% or a 10 year probability of a hip fracture = or greater than 3%, to reduce fracturerisk. Additional factors such as frequent falls are not represented in FRAX and warrant individual clinical judgment. IMPRESSION: Low Bone Mass. REFERENCE: Bone mineral density: T-Score: Normal (T-score above or = -1.0) Low bone mass (T-score between -1.0 and -2.5) replaces thepreviously used term osteopenia Osteoporosis (T-score = or below -2.5) Z-Score: Within the expected range for age (Z-score above -2.0) Below the expected range for age (Z-score is -2.0 or below) Please see below follow up recommendations. Medical evaluation forsecondary causes of low bone mineral density may be appropriate. FRAX is a World Health Organization validated fracture risk assessmenttool that calculates a person's 10 year probability of a major osteoporosisrelated fracture and hip fracture. According to the National OsteoporosisFoundation guidelines, postmenopausal women and men age 50 or older with low bonemass and a 10 year probability of a major osteoporosis related fracture = or greater than 20% or a 10 year probability of a hip fracture = or greaterthan 3% should be considered for pharmacological treatment for the preventionof osteoporosis. For further information, including treatment recommendations, please referto the 2019 ISCD Official Positions (http://www.iscd.org) and the NOF's Clinician's Guide to Prevention and Treatment of Osteoporosis (http://www.nof.org/professionals/clinical-guidelines) THIS IS AN ELECTRONICALLY VERIFIED FINAL REPORT 11/26/2024 9:17 AM - Electronically signed by Peyman Chung M.D. MF: [id number] Report ID: [id number] Reading Location: [id number] Johanna Lorenzana MD IMG DXA PROCEDURES Fi nal Result * Diagnostic Mammogram Bilateral W Juanjose (10/12/2024 8:08 AM CDT) Anatomical Region Laterality Modality Breast Bilateral Mammography 10/12/2024 8:17 AM CDT Impressions 10/12/2024 8:37 AM CDT 1. Expected changes of fat necrosis in the LEFT breast at the area of palpable concern on the prior exam. There are also changes of fat necrosis present in the RIGHT breast. 2. No new mammographic finding suggestive of malignancy EITHER breast. OVERALL FINAL ASSESSMENT: BI-RADS Category 2: Benign. RECOMMENDATION: Annual screening mammography is recommended. Dictated by: Quan Henson M.D (Ramanan). The radiology attending physician has personally reviewed this study, and had reviewed and/or edited this written report and agrees with it. Electronically signed by: SHILPA JHAVERI MD Narrative 10/12/2024 8:37 AM CDT EXAMINATION: BILATERAL DIGITAL DIAGNOSTIC MAMMOGRAM INCLUDING CAD AND BILATERAL DIGITAL BREAST TOMOSYNTHESIS HISTORY: 64-year-old female with history of bilateral reduction mammoplasty performed 2021. Noted to have an area of palpable concern on the left inner breast in 2023, which is noted to be an oil cyst with evolving fat necrosis/inflammation. Recommended 6 month follow-up. COMPARISON: 02/08/2024, and mammograms dating as far back as 2014. TECHNIQUE: Full field digital mammographic views of BOTH breasts were performed, including computer aided detection (CAD) and BILATERAL digital breast tomosynthesis (DBT). BREAST PARENCHYMAL COMPOSITION: There are scattered areas of fibroglandular density. MAMMOGRAM FINDINGS: There is no mass, calcification or architectural distortion suggestive of malignancy in the RIGHT breast. There are oil cysts and areas of increased fibroglandular tissue which represents postsurgical changes of reduction mammoplasty in the RIGHT breast. There is interval development of calcifications at the area of palpable concern, which represents expected changes of fat necrosis. There are no new masses, calcifications or architectural distortion suggestive of malignancy in the LEFT breast. Procedure Note Shilpa Jhaveri MD - 10/12/2024 EXAMINATION: BILATERAL DIGITAL DIAGNOSTIC MAMMOGRAM INCLUDING CAD AND BILATERAL DIGITAL BREAST TOMOSYNTHESIS HISTORY: 64-year-old female with history of bilateral reduction mammoplasty performed 2021. Noted to have an area of palpable concern on the left inner breast in 2023, which is noted to be an oil cyst with evolving fat necrosis/inflammation. Recommended 6 month follow-up. COMPARISON: 02/08/2024, and mammograms dating as far back as 2014. TECHNIQUE: Full field digital mammographic views of BOTH breasts were performed, including computer aided detection (CAD) and BILATERAL digital breast tomosynthesis (DBT). BREAST PARENCHYMAL COMPOSITION: There are scattered areas of fibroglandular density. MAMMOGRAM FINDINGS: There is no mass, calcification or architectural distortion suggestive of malignancy in the RIGHT breast. There are oil cysts and areas of increased fibroglandular tissue which represents postsurgical changes of reduction mammoplasty in the RIGHT breast. There is interval development of calcifications at the area of palpable concern, which represents expected changes of fat necrosis. There are no new masses, calcifications or architectural distortion suggestive of malignancy in the LEFT breast. IMPRESSION: 1. Expected changes of fat necrosis in the LEFT breast at the area of palpable concern on the prior exam. There are also changes of fat necrosis present in the RIGHT breast. 2. No new mammographic finding suggestive of malignancy EITHER breast. OVERALL FINAL ASSESSMENT: BI-RADS Category 2: Benign. RECOMMENDATION: Annual screening mammography is recommended. Dictated by: Quan Henson M.D. ([place]) The radiology attending physician has personally reviewed this study, and had reviewed and/or edited this written report and agrees with it. Electronically signed by: SHILPA JHAVERI MD Johanna Lorenzana MD IMG MAMMO PROCEDURES Final Result * Hepatitis C antibody (09/09/2022 7:29 AM CDT) Hep C Ab NON-REACTI VE NON-REACT DELIA [facility] SIGNAL TO CUT-OFF 0.08 <1.00 [facility] Comment: HCV antibody was non-reactive. There is no laboratory evidence of HCV infection. In most cases, no further action is required. However, if recent HCV exposure is suspected, a test for HCV RNA (test code 69178) is suggested. 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 Patient Name: Sonal Holder Procedure Date: 07/12/2021 7:54 AM Date of : 1960 Admit Type: Outpatient Age: 61 Gender: Female Attending MD: Emilio Grossman M.D. Room: [facility] ENDOSCOPY ROOM 1 Note Status: Finalized Patient Profile: This is a 61 year old female. Her mother had colon cancer. Procedure: Colonoscopy Indications: Screening in patient at increased risk: Familyhistory of 1st-degree relative with colorectal cancer, Last colonoscopy: February 2015 Referring MD: Eulalio Vaughn M.D. Providers: Emilio Grossman M.D. Impression: - The entire examined colon is normal. - Mild diverticulosis in the sigmoid colon. - Internal hemorrhoids. - No specimens collected. Recommendation: - Repeat colonoscopy in 5 years for screeningpurposes. - Continue present medications. Medicines: Monitored Anesthesia Care Complications: No immediate complications. Estimated Blood Loss: Estimated blood loss: none. Procedure: Pre-Anesthesia Assessment: - Prior to the procedure, a History and Physicalwas performed, and patient medications and allergieswere reviewed. The patient's tolerance of previous anesthesia was also reviewed. The risks andbenefits of the procedure and the sedation options and risks were discussed with the patient. All questions were answered, and informed consent was obtained. Prior Anticoagulants: The patient has taken no previous anticoagulant or antiplatelet agents. ASA Grade Assessment: II - A patient with mild systemicdisease. After reviewing the risks and benefits, the patient was deemed in satisfactory condition to undergo the procedure. The benefits, risks and alternatives of theprocedure and sedation were discussed and informed consentwas obtained. All questions were answered. Please referto the signed informed consent document in the medical record. The bowel preparation used was Miralax via split dose instruction. The bowel preparation usedwas bisacodyl tablets via split dose instruction. The scope was passed under direct vision. The Pediatric Colonoscope PCF-H190L [id number] was introducedthrough the anus and advanced to the the cecum, identifiedby appendiceal orifice and ileocecal valve. Thequality of the bowel preparation was excellent. Bowel prepwas administered using a split dose. Findings: The perianal and digital rectal examinations were normal. The cecum appeared normal. The colon (entire examined portion) appeared normal. No polyps and no mass lesions noted. A few small-mouthed diverticula were found in the sigmoid colon. Internal hemorrhoids were found during retroflexion. The hemorrhoids were small. Electronically signed by Emilio Grossman M.D. Emilio Grossman M.D. 07/12/2021 8:37:37 AM Number of Addenda: 0 Note Initiated On: 07/12/2021 7:54 AM Procedure Code(s): --- Professional --- 32288, Colonoscopy, flexible; diagnostic, including collection of specimen(s) by brushing or washing, when performed (separateprocedure) Diagnosis Code(s): --- Professional --- Z80.0, Family history of malignant neoplasm of digestive organs K64.8, Other hemorrhoids K57.30, Diverticulosis of large intestine without perforation orabscess without bleeding CPT copyright 2019 [employer]. All rights reserved. The codes documented in this report are preliminary and upon mamma logist reviewmay be revised to meet current compliance requirements. 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
--- OUTSIDE RECORDS SUMMARY | 2025-02-23 17:02 | XMS_ITS | Clinical Summary ---
Author Organization [facility] Address [address] 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 This disclosure is being madepursuant to the Care Everywhere program and may not contain all information available regarding this patient. Last updated 18.[facility] Allergies No known active allergies Medications * Be aware that medications may not be up to date on this document. Alwaysverify current medications with the patient. estradiol (Estrace) 2 MG tablet 06/23/2023 Active losartan (Cozaar) 50 MG tablet 04/03/2023 Active triamterene-hyd roCHLOROthiazid e (Maxzide-25) 37.5-25 MG tablet 04/03/2023 Active buPROPion XL 24hr (Wellbutrin-XL) 300 MG tablet Take 1 (one) tablet by mouth every morning Active medroxyPROGESTE Ronen (Provera) 2.5 MG tablet Take 1 (one) tablet by mouth once daily Active Black Cohosh 540 MG Active Active Problems Problem Noted Date Diagnosed Date Left hip pain 04/28/2023 07/02/2023 Overview (07/02/2023): Last Assessment & Plan: Off and on Worsening, possible arthritis Will get xray of the left hip, depending on results will consider physical therapy referral F/u at annual Insomnia 07/23/2022 07/02/2023 Overview (07/02/2023): Last Assessment & Plan: She has done trazodone in the past and it didn't help much. She is willing to try the 100mg of trazodone Hypertriglyceridemia 12/12/2021 07/02/2023 Overview (07/02/2023): Last Assessment & Plan: Seen on screening for work Lipid panel ordered today to recheck Will fill out forms once completed History of migraine headaches 07/16/2021 Overview (07/02/2023): Last Assessment & Plan: Stable Continue sumatriptan as needed Mild episode of recurrent major depressive disor aida 07/16/2021 07/02/2023 Essential hypertension 10/15/2017 4 Overview (07/02/2023): Last Assessment & Plan: Bp in the office today BP Readings from Last 1 Encounters: 04/28/23 126/80 Goal <130/80 Continue current regimen of losartan 50mg daily and triamterene hctz 37.5-25mg Recommend DASH diet, heart-healthy lifestyle, exercise. Discussed the risks of hypertension. F/u in 3 months for annual Anxiety state 11/05/2013 07/02/2023 Overview (07/02/2023): ANXIETY STATE NOS Last Assessment & Plan: Continue xanax and wellbutrin as prescribed Carpal tunnel syndrome 04/17/2011 4 Family History Medical History Relation Name Comments Cancer - Colon Mother Depression Mother Hypertension Mother Cancer - Breast Sister Relation Name Status Comments Mother Sister Social History Tobacco Use Types Packs/Day Years Used Date Smoking Tobacco: Never Smokeless Tobacco: Never Tobacco Cessation:Counseling Given: Not Answered Alcohol Use Standard Drinks/Week Comments Yes 0 (1 standard drink = 0.6 oz pur e alcohol) 5/week Comments No Sex and Gender Information Value Date Recorded Sex Assigned at Not on file Legal Sex Female 12:39 PM [facility] Gender Identity Not on file Sexual Orientation Not on file Last Filed Vital Signs Vital Sign Reading Time Taken Comments Blood Pressure 126/74 07/02/2023 9:12 AM RN [facility] Pulse - - Temperature 36.6 C (97.8 F) 07/02/2023 9:12 AM RN [facility] Respiratory Rate - - Oxygen Saturation - - Inhaled Oxygen Concentration - - Weight 66.3 kg (146 lb 3.2 oz) 07/02/2023 9:12 A M [facility] Height 160 cm (5' 3) 07/02/2023 9:12 AM RN [facility] Body Mass Index 25.9 07/02/2023 9:12 AM RN [facility] Plan of Treatment Upcoming Encounters Date Type Department Care Team (Late st Contact Info) Description 03/06/2025 1:40 PM CDT Office Visit [facility] - 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 [address] [place] [phone] Eboni Pappas MD [address] [place], [place] [id number] 03/08/2025 3:00 PM CDT Office Visit [facility] - 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 [address] [place] [phone] Bhavik Luna Che, MD [address] [place] [address] Health Maintenance Due Date Last Done Comments BONE DENSITY TESTING 1960 COLOGUARD (AGES 45-75) - COLON CA SCREENING 1960 CT COLONOGRAPHY - COLON CA SCREENING 1960 FIT - COLON CA SCREENING 1960 FLEX SIG - COLON CA SCREENING 1960 LIPID TESTING 1960 HIV SCREENING 1974 HEPATITIS C SCREENING 07/01/1977 DTAP/TDAP/TD VACCINES (1 - Tdap) 1978 PAP SMEAR 1980 PNEUMOCOCCAL VACCINE 50+ (1 of 1 - PCV) 2009 ZOSTER VACCINE (1 of 2) 2009 SCREENING FOR DIABETES 07/02/2023 DEPRESSION SCREENING 06/22/2024 MAMMOGRAM 10/22/2024 10/22/2022, 05/0 08/2022, 02/13/2021, Additional history exists COVID-19 VACCINE ( - season) 2025 05/22/2021, 10/15/2020, 09/24/2020 INFLUENZA VACCINE (#1) 2025 COLON MONITORING 07/12/2031 07/12/2021 COLONOSCOPY - COLON CA SCREENING 07/12/2031 07/12/2021 Colorectal Cancer Screening 07/12/2031 Respiratory Syncytial Virus (RSV) Vaccine Pt: or over 60 yrs (1 - 1-dose 75+ series) 2034 HEPATITIS B VACCINE Aged Out No longe r eligible based on patient's age to complete this topic HIB VACCINE Aged Out No longer eligi ble based on patient's age to complete this topic HPV VACCINE Aged Out No longer eligi ble based on patient's age to complete this topic MENINGOCOCCAL (Group B) VACCINE SHARED DECISION-MAKING Aged Out No longer eligible based on patient's age to complete this topic MENINGOCOCCAL GROUPS A/C/Y/W VACCINE Aged Out No longer eligible based on patient's age to complete this topic Insurance ANTHEM Care Teams 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
[2025-02-23 17:12] VITALS: BP 152/92; PULSE 74; RESP 18; TEMP 36.7; O2SAT 100
--- NOTE | 2025-02-23 17:43 | ED.FEMALEGU ---
HPI - Female Genitourinary General Chief complaint: Urogenital-Female Stated complaint: Urinary Problem Time Seen by Provider: 02/23/25 17:43 Source: patient, RN notes reviewed and old records reviewed Mode of arrival: ambulatory Limitations: no limitations History of Present Illness HPI Narrative: 64-year-old female presents to the [facility] with concerns for UTI. Reports burning with urination that started today. Had similar symptoms couple weeks ago, called primary care provider was prescribed Macrobid without any testing. Related Data Home Medications ?Medication ?Instructions ?Recorded ?Confirmed ?Last Taken ?Type alprazolam 0.25 mg tablet 0.25 mg PO TID PRN Anxiety 11/18/22 01/31/23 Unknown History bupropion HCl 300 mg 24 hr tablet, 300 mg PO DAILY 11/18/22 01/31/23 Unknown History extended release losartan 50 mg tablet 50 mg PO DAILY 11/18/22 01/31/23 Unknown History triamterene 37.5 1 tablet PO DAILY 11/18/22 01/31/23 Unknown History mg-hydrochlorothiazide 25 mg tablet Allergies Allergy/AdvReac Type Severity Reaction Status Date / Time No Known Allergies Allergy Mild Verified 02/23/25 17:01 Review of Systems Review of Systems: All systems reviewed & are unremarkable except as noted in HPI and below Constitutional: Constitutional: Reports no additional constitutional complaints ENT: Reports system reviewed and no additional complaints, except as documented Cardiovascular: Cardiovascular: Reports no additional cardiovascular complaints, Denies chest pain and Denies dyspnea Respiratory: Respiratory: Reports no additional respiratory complaints, Denies chest congestion, Denies cough and Denies dyspnea Gastrointestinal: Gastrointestinal: Reports no additional gastrointestinal complaints Genitourinary: Genitourinary: Reports as per HPI Musculoskeletal: Musculoskeletal: Reports no additional musculoskeletal complaints Integumentary/Breasts: Skin/Breast: Reports system reviewed and no additional complaints, except as docu PMFSH Past Medical History Medical History Hypertension Surgical History Surgical History No pertinent past surgical history Family History Family History Mother Family history non-contributory Social History Social History Smoking status: Never smoker Substance use: never Living arrangements: alone Gender identity (if verbalized by the patient): Female Spiritual care concerns: No Comments At the time of my signature, I reviewed and agree with the nursing past medical, surgical, social, and family history. There is no relevant family history pertinent to the patient complaint. Exam Const: General: cooperative, healthy appearing, comfortable, no acute distress, well developed, alert and well nourished Nutritional Appearance: well nourished Orientation/consciousness: patient oriented x3 Limitations: no limitations HENMT: Head: normal to inspection Eyes: General: appearance normal, both eyes and all related structures Alignment and Position: alignment normal Neck: Neck: normal visual inspection, full ROM, no lymphadenopathy and no meningeal signs Chest: Chest palpation & inspection: normal inspection of the chest Resp: Effort & Inspection: normal respiratory effort and able to speak in complete sentences Auscultation: clear to auscultation bilaterally, no crackles, no rales, no rhonchi and no wheezes Cardio: Rate: regular rate GI: GI Palp: No abdominal tenderness : General: Yes no CVA tenderness Skin: General skin exam: normal color and no rashes or lesions noted Neuro: General: patient oriented x3, gait normal, moves all extremities and no meningeal signs Cognition (Neuro): normal cognition Speech: normal speech Gait exam (Neuro): Normal gait present Extrem: General: normal to inspection, full ROM, capillary refill normal and normal gait Psych: Appearance: grossly normal and well kempt Mental Status: mental status grossly normal Speech and movement: Normal speech and movement present and Clear speech present Affect: normal affect Attitude: cooperative Course Course Level of Care: Express Care Visit Vital Signs Vital signs: Vital Signs Temperature 98.1 F 02/23/25 17:12 Pulse Rate 74 02/23/25 17:12 Respiratory Rate 18 02/23/25 17:12 Blood Pressure 152/92 H 02/23/25 17:12 Pulse Oximetry 100 02/23/25 17:12 Oxygen Delivery Room Air 02/23/25 17:12 Temperature 98.1 F 02/23/25 17:12 Pulse Rate 74 02/23/25 17:12 Respiratory Rate 18 02/23/25 17:12 Blood Pressure 152/92 H 02/23/25 17:12 Pulse Oximetry 100 02/23/25 17:12 Oxygen Delivery Room Air 02/23/25 17:12 Reviewed MDM - Female Genitourinary MDM Narrative Medical decision making narrative: Patient sitting in exam room. Patient is nontoxic, vitals stable. Patient presents with urinary symptoms. Patient positive leukocytes, will treat with antibiotic, sent for culture. Patient appropriate for outpatient treatment with close follow-up Discharge instructions reviewed with patient, as well as provided in writing per nursing staff. The instructions also include specific and strict return/GO TO THE ER as well as f/u information. All questions have been answered, and the patient deny any further questions with discharge and discharge plan. Some parts of this dictation were generated by voice recognition software and may contain typographical and/or grammatical inaccuracies. Differential Diagnosis Differential diagnosis: Likely urinary tract infection and cystitis Lab Data Labs: Lab Results 02/23/25 Range/Units 17:43 POC Urine Color Yellow POC Urine Clarity Clear POC Urine pH 8.0 POC Ur Specif Kenefic 1.015 POC Urine Protein Trace (Negative) POC Ur Glucose (UA) Negative (Negative) POC Urine Ketones Negative (Negative) POC Urine Blood Trace (Negative) POC Urine Nitrite Negative (Negative) POC Urine Bilirubin Negative (Negative) POC Urine Urobilinogen 0.2 POC U Leukocyte Esteras 3+ (Negative) Reviewed Critical Care Time Critical Care Time Critical Care Time: No Discharge Plan Discharge Clinical Impression: Urinary tract infection Qualifiers: Urinary tract infection type: acute cystitis Hematuria presence: with hematuria Qualified Code(s): N30.01 - Acute cystitis with hematuria Patient Disposition: Home Condition: Stable Instructions: Antibiotic Form, Urinary Tract Infection in Women (ED) Additional Instructions: Increased water intake Take Tylenol as needed for pain Take antibiotic as prescribed Today your urine dip showed a probability of a UTI. You have been prescribed an antibiotic. Your urine will be sent to our lab for a culture. If at that time a bacteria grows that is not covered by the antibiotic prescribed you will be notified. Follow-up with primary care For new or worsening symptoms go directly to the emergency room Patient Language: [place] Prescriptions: New amoxicillin-pot clavulanate 875-125 mg tablet 1 tablet PO Q12H Qty: 10 0RF No Action bupropion HCl 300 mg tablet extended release 24 hr 300 mg PO DAILY alprazolam 0.25 mg tablet 0.25 mg PO TID PRN (Reason: Anxiety) losartan 50 mg tablet 50 mg PO DAILY triamterene-hydrochlorothiazid 37.5-25 mg tablet 1 tablet PO DAILY Follow-up/Referrals: Harriett,MD Johanna [Primary Care Provider, Unknown] - 2 Weeks Clinical Impression: Urinary tract infection Stand Alone Forms: Work/School Release IP Time of Disposition: 17:51
[2025-02-23 17:46] LABS: EDUAAPPEAR Clear; EDUABILI Negative (Negative); EDUABLOOD Trace (Negative); EDUACOLOR1 Yellow; EDUAGLUCOSE Negative (Negative); EDUAKETONE Negative (Negative); EDUALEUKO 3+ (Negative); EDUANITRATE Negative (Negative); EDUAPH 8.0; EDUAPROTEIN Trace (Negative); EDUASPGRAVITY 1.015; EDUAUROBILI 0.2
== END 2025-02-23 17:58 | disposition home or self-care (01) ==
PROVIDERS: Emergency Provider Nurse Practitioner; PCP Family Medicine
DX: N30.01 Acute cystitis with hematuria (principal); I10 Essential (primary) hypertension
CPT/HCPCS: 81003; 87077; 87086; 87186; 99213; G0463